=== PATIENT | female | born 1965 | race Caucasian/White ===

== ENCOUNTER 2018-04-16 18:24 | Emergency (ER) | payer MEDICAID ==
[~2018-04-16] VITALS: Ht 160 cm; Wt 72.6 kg
[~2018-04-16 18:24] MED LIST: ALBUTEROL2.5 MG/3 M IH; ANTI-DIARRHEAL2 MG PO; ATENOLOL 50MG T50 M1 PO; BELSOMRA5 MG PO; CARISOPRODOL 3350 MG PO; HYDROCHLOROTHIA25 M2 PO; HYDROCODONE-APA1 TA1 PO; INVOKANA300 MG PO; K-PHOS NEUTRAL250 MG PO; LEVAQUIN 500 M500 M2 PO; LEXAPRO20 MG PO; MAGNESIUM OXID400 MG PO; MEDROLDOSEPACK PO; METFORMIN HCL500 MG PO; MINOCIN100 MG PO; MINOCYCLINE HC100 M2 PO; NOHOMEMEDICATIONS; OMEPRAZOLE20 M2 PO; PRINIVIL10 MG PO; PROZAC10 MG PO; SEROQUEL 25 MG25 M1 PO; TUSSIONEX PENN473 ML PO; VENTOLIN HFA 1818 GM INH; XANAX 0.5 MG0.5 MG PO; ZANAFLEX4 MG PO
[2018-04-16] MEDS ORDERED: CLONAZEPAM 1 MG1 M1 PO (18:37)
[2018-04-16] MEDS ORDERED: ZANAFLEX4 MG PO (18:37)
[2018-04-16] MEDS ORDERED: LEVEMIR SUBQ (18:37)
[2018-04-16] MEDS ORDERED: AMLODIPINE BESY10 MG PO (18:38)
[2018-04-16] MEDS ORDERED: PROMETHAZINE HC25 M1 PO (18:38)
[2018-04-16] MEDS ORDERED: QUETIAPINE FUM100 MG PO (18:38)
[2018-04-16] MEDS ORDERED: LEXAPRO 10 MG T10 M1 PO (18:39)
[2018-04-16] MEDS ORDERED: SYNTHROID100 MC1 PO (18:39)
[2018-04-16] MEDS ORDERED: CLONIDINE1 EAC1 TD (18:40)
[2018-04-16] MEDS ORDERED: JANUVIA 50 MG T50 MG PO (18:40)
[2018-04-16] MEDS ORDERED: METOPROLOL SUCC50 MG PO (18:41)
[2018-04-16] MEDS ORDERED: AMITRIPTYLINE100 MG PO (18:42)
[2018-04-16] MEDS ORDERED: ASPIR 8181 MG PO (18:42)
[2018-04-16] MEDS ORDERED: DULERA 100 MCG/13 GM INH (18:42)
[2018-04-16] MEDS ORDERED: ATORVASTATIN CA40 MG PO (18:42)
[2018-04-16] MEDS ORDERED: XANAX XR2 MG PO (18:43)
[2018-04-16] MEDS ORDERED: ALPRAZOLAM2 MG PO (18:53)
[2018-04-16] MEDS ORDERED: CARISOPRODOL 3350 MG PO (18:53)
[2018-04-16 18:55] VITALS: BP 133/74
== END 2018-04-16 19:01 | disposition home or self-care (01) ==
LOC: M.ERS 18:24
DX: F41.9 Anxiety disorder, unspecified (principal); G89.29 Other chronic pain; Z76.0 Encounter for issue of repeat prescription; J44.9 Chronic obstructive pulmonary disease, unspecified; I10 Essential (primary) hypertension; E11.9 Type 2 diabetes mellitus without complications; F31.9 Bipolar disorder, unspecified; Z79.4 Long term (current) use of insulin; Z88.6 Allergy status to analgesic agent; Z88.8 Allergy status to other drugs, medicaments and biological substances; F17.210 Nicotine dependence, cigarettes, uncomplicated

== ENCOUNTER 2018-09-19 15:32 | Emergency (ER) | payer MEDICAID ==
[~2018-09-19] VITALS: Ht 160 cm; Wt 68.0 kg
[~2018-09-19 15:32] MED LIST changes: +ALPRAZOLAM2 MG PO; +AMITRIPTYLINE100 MG PO; +AMLODIPINE BESY10 MG PO; +ASPIR 8181 MG PO; +ATORVASTATIN CA40 MG PO; +CLONAZEPAM 1 MG1 M1 PO; +CLONIDINE1 EAC1 TD; +DULERA 100 MCG/13 GM INH; +JANUVIA 50 MG T50 MG PO; +LEVEMIR SUBQ; +LEXAPRO 10 MG T10 M1 PO; +METOPROLOL SUCC50 MG PO; +PROMETHAZINE HC25 M1 PO; +QUETIAPINE FUM100 MG PO; +SYNTHROID100 MC1 PO; +XANAX XR2 MG PO
[2018-09-19] MEDS ORDERED: NICOTINE TRANSD21 M1 (15:57)
[2018-09-19] MEDS ORDERED: AZITHROMYCIN 2250 MG PO (15:58)
[2018-09-19] MEDS ORDERED: CLONIDINE0.1 PO (16:04)
[2018-09-19] MEDS ORDERED: DULERA 100 MCG/13 GM INH (16:05)
[2018-09-19 16:28] LABS: ABSOLUTE BASOPHILS 0.1 thou/uL (0.0-0.2); ABSOLUTE EOSINOPHILS 0.1 thou/uL (0.0-0.7); ABSOLUTE LYMPHOCYTES 1.3 thou/uL (0.8-5.3); ABSOLUTE MONOCYTES 0.6 thou/uL (0.0-1.2); ABSOLUTE NEUTROPHILS 6.2 thou/uL (1.6-8.1); EOSINOPHILS 1.6 %; HEMATOCRIT 48.4 % (37.0-47.0); HEMOGLOBIN 16.3 gm/dL (12.0-15.0); LYMPHOCYTES 15.2 %; MCH 28.8 pg (26.0-34.0); MCHC 33.6 g/dL (28.0-37.0); MCV 85.8 fL (80.0-100.0); MONOCYTES 7.4 %; MPV 8.7 fl. (7.2-11.1); NUCLEATED RBCS 0 /100WBC; PLATELET COUNT* 200 thou/uL (150-400); POLYS 74.8 %; RBC 5.64 mil/uL (4.20-5.00); RDW-CV 16.1 % (10.5-14.5); WBC 8.3 thou/uL (4.0-11.0)
[2018-09-19 16:29] LABS: CALCIUM 9.3 mg/dL (8.5-10.1); CREATININE 0.9 mg/dL (0.6-1.3); POTASSIUM 3.3 mmol/L (3.5-5.1)
[2018-09-19 16:41] LABS: ALBUMIN 4.4 g/dL (3.4-5.0); TOTAL BILIRUBIN 0.4 mg/dL (<0.1-1.0); TOTAL PROTEIN 8.3 g/dL (6.4-8.2)
[2018-09-19 18:22] LABS: URINE BILIRUBIN NEGATIVE (Negative); URINE BLOOD NEGATIVE (Negative); URINE CLARITY CLEAR; URINE COLOR YELLOW; URINE GLUCOSE-RANDOM 3+ (Negative); URINE KETONES NEGATIVE (Negative); URINE LEUKOCYTES-REFLEX NEGATIVE (Negative); URINE NITRITE-REFLEX NEGATIVE (Negative); URINE PROTEIN NEGATIVE (Negative); URINE UROBILINOGEN 0.2 E.U./dl (0.2-1.0)
[2018-09-19] MEDS ORDERED: HYDROCODONE-AP1 EAC6 PO (18:26)
[2018-09-19] MEDS ORDERED: NABUMETONE 750750 M1 PO (18:26)
[2018-09-19] MEDS ORDERED: FLOMAX0.4 MG PO (18:26)
[2018-09-19] MEDS ORDERED: ONDANSETRON HCL4 M2 PO (18:26)
[2018-09-19 18:44] VITALS: BP 141/74
--- NOTE | 2018-09-20 17:22 | EKG ---
[place] [address] ELECTROCARDIOGRAM REPORT Name: ESHA ALDRIDGE Room: [facility]#: [id number] Admission: 09/19/18 Attend Phys: Discharge: 09/19/18 Date of : 63 Report #: [id number] THIS REPORT FOR: //name// [facility] ED Test Date: 2018-09-19 Test Time: 16:35:54 Pat Name: ESHA ALDRIDGE Department: Room: Gender: F Motor Operator: Latrell NEFF : 1965 Requested By: Luara Grady Order Number: [id number] MD: Bob Nicole Measurements Intervals [place] Rate: 97 P: 82 MS: 164 QRS: 82 QRSD: 91 T: 66 QT: 341 QTc: 433 Interpretive Statements Sinus rhythm Compared to ECG 12/27/2015 16:54:30 Incomplete right bundle-branch block no longer present Electronically Signed On 09-20-2018 17:22:29 CDT by Bob Nicole [email or web address] <ELECTRONICALLY SIGNED> By: Bob Nicole MD, [facility] 09/20/18 1722 1635 163 Bob Nicole MD, FACC /EPI
== END 2018-09-19 18:45 | disposition home or self-care (01) ==
LOC: M.ERS 15:32
PROVIDERS: Nurse Practitioner Family
DX: N20.1 Calculus of ureter (principal); K59.00 Constipation, unspecified; E11.65 Type 2 diabetes mellitus with hyperglycemia; J44.9 Chronic obstructive pulmonary disease, unspecified; K58.9 Irritable bowel syndrome, unspecified; I10 Essential (primary) hypertension; F31.9 Bipolar disorder, unspecified; F41.9 Anxiety disorder, unspecified; F17.210 Nicotine dependence, cigarettes, uncomplicated; Z79.4 Long term (current) use of insulin; Z88.8 Allergy status to other drugs, medicaments and biological substances; Z88.6 Allergy status to analgesic agent

== ENCOUNTER 2018-10-04 13:02 | Inpatient (IN) | payer MEDICAID ==
[~2018-10-04] VITALS: Ht 160 cm; Wt 74.4 kg
[~2018-10-04 13:02] MED LIST changes: +AZITHROMYCIN 2250 MG PO; +CLONIDINE0.1 PO; +FLOMAX0.4 MG PO; +HYDROCODONE-AP1 EAC6 PO; +NABUMETONE 750750 M1 PO; +NICOTINE TRANSD21 M1; +ONDANSETRON HCL4 M2 PO
[2018-10-04 13:04] VITALS: BP 119/68
[2018-10-04] MEDS ORDERED: EXCEDRIN CAPLE1 EACH PO (13:17)
[2018-10-04 14:00] LABS: HEMOGLOBIN 13.4 gm/dL (12.0-15.0); MCH 28.6 pg (26.0-34.0); MCHC 33.4 g/dL (28.0-37.0); MCV 85.5 fL (80.0-100.0); MPV 9.5 fl. (7.2-11.1); RBC 4.68 mil/uL (4.20-5.00); RDW-CV 15.2 % (10.5-14.5); WBC 8.2 thou/uL (4.0-11.0)
[2018-10-04 14:14] LABS: CALCIUM 8.6 mg/dL (8.5-10.1); CREATININE 0.8 mg/dL (0.6-1.3); POTASSIUM 3.3 mmol/L (3.5-5.1)
[2018-10-04 14:19] LABS: ALBUMIN 3.4 g/dL (3.4-5.0); TOTAL BILIRUBIN 0.5 mg/dL (<0.1-1.0); TOTAL PROTEIN 6.6 g/dL (6.4-8.2)
[2018-10-04 14:20] LABS: ALCOHOL < 10 mg/dL (<10); SALICYLATE 4.4 mg/dL (2.8-20.0)
[2018-10-04 14:21] LABS: ACETAMINOPHEN < 2 ug/mL (10-30)
[2018-10-04 14:24] LABS: URINE BILIRUBIN NEGATIVE (Negative); URINE BLOOD NEGATIVE (Negative); URINE CLARITY CLEAR; URINE COLOR YELLOW; URINE GLUCOSE-RANDOM 3+ (Negative); URINE KETONES NEGATIVE (Negative); URINE LEUKOCYTES NEGATIVE (Negative); URINE NITRITE NEGATIVE (Negative); URINE PROTEIN NEGATIVE (Negative); URINE SPECIFIC GRAVITY 1.025 (1.005-1.030); URINE UROBILINOGEN 0.2 E.U./dl (0.2-1.0)
[2018-10-04 14:34] LABS: AMP/METHAMP Negative (Negative); BARBITURATES Negative (Negative); BENZODIAZEPINES POSITIVE (Negative); COCAINE Negative (Negative); METHADONE Negative (Negative); OPIATES POSITIVE (Negative); PCP Negative (Negative); THC Negative (Negative)
--- NOTE | 2018-10-04 16:25 | NUR ---
PT PURSE AND PRESCRIPTION MEDS SENT HOME WITH PT MOTHER.
--- NOTE | 2018-10-04 17:41 | EKG ---
[place] [address] ELECTROCARDIOGRAM REPORT Name: ESHA ALDRIDGE Room: [facility]#: [id number] Admission: 10/04/18 Attend Phys: Discharge: Date of : 63 Report #: [id number] THIS REPORT FOR: //name// [facility] ED Test Date: 2018-10-04 Test Time: 14:36:37 Pat Name: ESHA ALDRIDGE Department: Room: Gender: Acid Regenerator: Latrell MAY : 1965 Requested By: Julieth Guardado Order Number: [id number] MD: Robbin Wright Measurements Intervals [place] Rate: 88 P: 69 [place]: 182 QRS: 72 QRSD: 89 T: 39 QT: 356 QTc: 431 Interpretive Statements Sinus rhythm Compared to ECG 09/19/2018 16:35:54 No significant changes Electronically Signed On 10-04-2018 17:41:03 LEAD FRONT END DEVELOPER by Robbin Wright [email or web address] <ELECTRONICALLY SIGNED> By: Robbin Wright MD, [facility] 10/04/18 1741 1436 1436 Robbin Wright MD, FACC /EPI
[2018-10-04 20:21] VITALS: BP 128/79
[2018-10-04 22:00] VITALS: BP 125/71
[2018-10-05] VITALS: BP 125/69
[2018-10-05 04:00] VITALS: BP 104/61
[2018-10-05 05:05] LABS: ABSOLUTE EOSINOPHILS 0.2 thou/uL (0.0-0.7); ABSOLUTE LYMPHOCYTES 1.8 thou/uL (0.8-5.3); ABSOLUTE MONOCYTES 0.4 thou/uL (0.0-1.2); ABSOLUTE NEUTROPHILS 4.1 thou/uL (1.6-8.1); BASOPHILS 0.6 %; EOSINOPHILS 2.4 %; HEMATOCRIT 37.4 % (37.0-47.0); HEMOGLOBIN 12.6 gm/dL (12.0-15.0); MCH 28.6 pg (26.0-34.0); MCHC 33.7 g/dL (28.0-37.0); MPV 9.4 fl. (7.2-11.1); NUCLEATED RBCS 0 /100WBC; PLATELET COUNT* 167 thou/uL (150-400); RDW-CV 15.2 % (10.5-14.5); WBC 6.5 thou/uL (4.0-11.0)
[2018-10-05 05:17] LABS: CALCIUM 8.3 mg/dL (8.5-10.1); CREATININE 0.7 mg/dL (0.6-1.3); POTASSIUM 3.5 mmol/L (3.5-5.1)
--- NOTE | 2018-10-05 06:23 | NUR ---
ASSUMED PT CARE AT 2015. ADMISSION ASSESSMENT COMPLETED CHARTED. PT DOES NOT STATE ANY SI. PT STATES TO TELE PSYCH THAT SHE DID NOT TAKE ANY EXTRA PILLS. PT TOLD THIS RN SHE TOOK "4 EXTRA PAIN PILLS THAT STARTED WITH AN N" WHEN ASKED WHY SHE STATED "BECAUSE I WAS HURTING" PT IS TRACING NSR ON THE ON RA SATTING MID TO HIGH 90'S. IVF INFUSING PER MAR. PT IS IMPULSIVE AND TRIES TO GET UP ALONE. DESPITE EDUCATION. BED IN LOW POSITION, CALL LIGHT IN REACH, BED ALARM ON, YELLOW ARM BAND AND SOCKS IN PLACE. HOURLY ROUNDING COMPLETED FOR PT SAFETY.
[2018-10-05 08:20] VITALS: BP 141/75
[2018-10-05 12:00] VITALS: BP 163/80
[2018-10-05] MEDS ORDERED: AUGMENTIN 875-1 EACH PO (13:38)
[2018-10-05 13:39] VITALS: BP 163/80
--- NOTE | 2018-10-05 14:06 | NUR ---
ASSUMED CARE OF PT FROM RAJEEV BAE. PT D/C'D TO HOME. ALL CONSULTS OK WITH D/C. EDUCATION GIVEN RE MEDICATIONS, FOLLOW-UPS, AND DRS ORDERS. D/C'D IV AND CARDIAC MONITER. ALL BELONGINGS PACKED UP AND LEFT WITH PT ACCOMPANIED BY STAFF. SCRIPT GIVEN.
== END 2018-10-05 14:15 | disposition home or self-care (01) | DRG 917 ==
LOC: M.ERS 13:02 → M.2W 18:39 → M.TBA-ER 18:39 → M.2W 20:13
PROVIDERS: Personal Emergency Response Attendant; ADMIT Internal Medicine
DX: T50.991A Poisoning by other drugs, medicaments and biological substances, accidental (unintentional), initial encounter (principal); G92 Toxic encephalopathy; J96.01 Acute respiratory failure with hypoxia; J44.9 Chronic obstructive pulmonary disease, unspecified; I10 Essential (primary) hypertension; K58.9 Irritable bowel syndrome, unspecified; F31.9 Bipolar disorder, unspecified; F41.0 Panic disorder [episodic paroxysmal anxiety]; F43.10 Post-traumatic stress disorder, unspecified; K57.90 Diverticulosis of intestine, part unspecified, without perforation or abscess without bleeding; E11.65 Type 2 diabetes mellitus with hyperglycemia; F17.210 Nicotine dependence, cigarettes, uncomplicated; E87.6 Hypokalemia; Z71.6 Tobacco abuse counseling; Y92.89 Other specified places as the place of occurrence of the external cause; Z79.4 Long term (current) use of insulin; Z79.899 Other long term (current) drug therapy; Z88.8 Allergy status to other drugs, medicaments and biological substances; Z82.49 Family history of ischemic heart disease and other diseases of the circulatory system

== ENCOUNTER 2018-10-20 11:41 | Emergency (ER) | payer MEDICAID ==
[~2018-10-20] VITALS: Ht 160 cm; Wt 71.2 kg
[~2018-10-20 11:41] MED LIST changes: +AUGMENTIN 875-1 EACH PO; +EXCEDRIN CAPLE1 EACH PO
[2018-10-20] MEDS ORDERED: FLOMAX0.4 MG PO (11:52)
[2018-10-20] MEDS ORDERED: ACETAMINOPHEN-1 EAC1 PO (11:52)
[2018-10-20] MEDS ORDERED: NAPROSYN500 MG PO (14:34)
[2018-10-20 14:40] VITALS: BP 139/64
== END 2018-10-20 14:40 | disposition home or self-care (01) ==
LOC: M.ERS 11:41
DX: S93.491A Sprain of other ligament of right ankle, initial encounter (principal); M54.6 Pain in thoracic spine; M54.2 Cervicalgia; M79.671 Pain in right foot; J44.9 Chronic obstructive pulmonary disease, unspecified; K58.9 Irritable bowel syndrome, unspecified; I10 Essential (primary) hypertension; E11.9 Type 2 diabetes mellitus without complications; F31.9 Bipolar disorder, unspecified; F41.0 Panic disorder [episodic paroxysmal anxiety]; K31.84 Gastroparesis; Z98.890 Other specified postprocedural states; Z79.4 Long term (current) use of insulin; Z88.6 Allergy status to analgesic agent; Z88.8 Allergy status to other drugs, medicaments and biological substances; W18.39XA Other fall on same level, initial encounter; Y93.89 Activity, other specified; Y92.89 Other specified places as the place of occurrence of the external cause; Y99.8 Other external cause status

== ENCOUNTER 2019-04-05 13:49 | Emergency (ER) | payer MEDICAID ==
[~2019-04-05] VITALS: Ht 160 cm; Wt 66.7 kg
[~2019-04-05 13:49] MED LIST changes: +ACETAMINOPHEN-1 EAC1 PO; +NAPROSYN500 MG PO
[2019-04-05 14:00] VITALS: BP 124/69
[2019-04-05] MEDS ORDERED: CARISOPRODOL 3350 MG PO (14:47)
[2019-04-05] MEDS ORDERED: NORCO 5-325 TA1 EACH PO (14:47)
[2019-04-05] MEDS ORDERED: ALPRAZOLAM2 MG PO (14:47)
== END 2019-04-05 15:03 | disposition home or self-care (01) ==
LOC: M.ERS 13:49
DX: M25.571 Pain in right ankle and joints of right foot (principal); F41.9 Anxiety disorder, unspecified; E11.43 Type 2 diabetes mellitus with diabetic autonomic (poly)neuropathy; K31.84 Gastroparesis; J44.9 Chronic obstructive pulmonary disease, unspecified; K58.9 Irritable bowel syndrome, unspecified; I10 Essential (primary) hypertension; F31.9 Bipolar disorder, unspecified; F17.210 Nicotine dependence, cigarettes, uncomplicated; Z88.6 Allergy status to analgesic agent; Z88.8 Allergy status to other drugs, medicaments and biological substances; Z79.4 Long term (current) use of insulin

== ENCOUNTER 2019-04-20 20:59 | Emergency (ER) | payer MEDICAID ==
[~2019-04-20] VITALS: Ht 160 cm; Wt 66.2 kg
[~2019-04-20 20:59] MED LIST changes: -METOPROLOL SUCC50 MG PO; +NORCO 5-325 TA1 EACH PO; -QUETIAPINE FUM100 MG PO; +SEROQUEL XR 20200 MG PO; +TOPROL XL100 MG PO
[2019-04-20] MEDS ORDERED: NEURONTIN 300300 M1 (21:30)
[2019-04-20] MEDS ORDERED: PROVERA2.5 MG (21:31)
[2019-04-20] MEDS ORDERED: ESTRADIOL 1 MG T1 M1 (21:32)
[2019-04-20] MEDS ORDERED: METFORMIN HCL500 MG (21:35)
[2019-04-20] MEDS ORDERED: DYNACIN100 MG (21:38)
[2019-04-20] MEDS ORDERED: ASPIR 8181 MG (21:41)
[2019-04-20] MEDS ORDERED: DULERA 100 MCG/13 GM INH (21:43)
[2019-04-20 21:55] LABS: ABSOLUTE BASOPHILS 0.1 thou/uL (0.0-0.2); ABSOLUTE EOSINOPHILS 0.1 thou/uL (0.0-0.7); ABSOLUTE LYMPHOCYTES 2.2 thou/uL (0.8-5.3); ABSOLUTE MONOCYTES 0.3 thou/uL (0.0-1.2); ABSOLUTE NEUTROPHILS 3.7 thou/uL (1.6-8.1); BASOPHILS 0.9 %; EOSINOPHILS 2.1 %; HEMATOCRIT 41.4 % (37.0-47.0); HEMOGLOBIN 14.2 gm/dL (12.0-15.0); LYMPHOCYTES 34.4 %; MCH 29.3 pg (26.0-34.0); MCHC 34.4 g/dL (28.0-37.0); MCV 85.2 fL (80.0-100.0); MONOCYTES 4.8 %; MPV 9.4 fl. (7.2-11.1); NUCLEATED RBCS 0 /100WBC; PLATELET COUNT* 156 thou/uL (150-400); POLYS 57.8 %; RBC 4.86 mil/uL (4.20-5.00); RDW-CV 14.7 % (10.5-14.5); WBC 6.3 thou/uL (4.0-11.0)
[2019-04-20 22:01] LABS: ANION GAP 12 mmol/L (7-16); BUN 5 mg/dL (7-18); CALCIUM 8.8 mg/dL (8.5-10.1); CHLORIDE 96 mmol/L (98-107); CO2 27 mmol/L (21-32); CREATININE 0.8 mg/dL (0.6-1.3); GLUCOSE 380 mg/dL (70-99); SODIUM 135 mmol/L (136-145)
[2019-04-20 22:05] LABS: URINE BILIRUBIN NEGATIVE (Negative); URINE BLOOD NEGATIVE (Negative); URINE CLARITY CLEAR; URINE COLOR YELLOW; URINE GLUCOSE-RANDOM 3+ (Negative); URINE KETONES NEGATIVE (Negative); URINE LEUKOCYTES-REFLEX NEGATIVE (Negative); URINE NITRITE-REFLEX NEGATIVE (Negative); URINE PROTEIN NEGATIVE (Negative); URINE SPECIFIC GRAVITY <= 1.005 (1.005-1.030); URINE UROBILINOGEN 0.2 E.U./dl (0.2-1.0)
[2019-04-20 22:05] LABS: POTASSIUM 2.9 mmol/L (3.5-5.1)
[2019-04-20 22:10] LABS: ALBUMIN 3.5 g/dL (3.4-5.0); ALKALINE PHOSPHATASE 101 U/L (46-116); SGOT 22 U/L (15-37); SGPT 37 U/L (30-65); TOTAL BILIRUBIN 0.4 mg/dL (<0.1-1.0); TOTAL PROTEIN 6.5 g/dL (6.4-8.2); TROPONIN-I LEVEL <0.06 ng/mL (<0.06)
[2019-04-20 22:16] LABS: AMP/METHAMP POSITIVE (Negative); BARBITURATES Negative (Negative); BENZODIAZEPINES POSITIVE (Negative); COCAINE Negative (Negative); METHADONE Negative (Negative); OPIATES Negative (Negative); PCP Negative (Negative); THC POSITIVE (Negative)
[2019-04-20] MEDS ORDERED: ACETAMINOPHEN-1 EAC1 PO (23:52)
[2019-04-20] MEDS ORDERED: MELOXICAM15 MG PO (23:52)
[2019-04-21 01:07] VITALS: BP 108/60
--- NOTE | 2019-04-23 16:45 | EKG ---
[place] [address] ELECTROCARDIOGRAM REPORT Name: ESHA ALDRIDGE Room: [facility] ([place] [place]#: [id number] Admission: 04/20/19 Attend Phys: Discharge: 04/21/19 Date of : 63 Report #: [id number] THIS REPORT FOR: //name// [facility] ED Test Date: 2019-04-20 Test Time: 21:47:14 Pat Name: ESHA ALDRIDGE Department: Room: Gender: F Cell Installer: LULU : 1965 Requested By: Julieth Guardado Order Number: [id number] MD: Kaveh Collier Measurements Intervals [place] Rate: 87 P: 73 ID: 177 QRS: 70 QRSD: 93 T: 51 QT: 361 QTc: 435 Interpretive Statements Sinus rhythm Compared to ECG 10/04/2018 14:36:37 No significant changes Electronically Signed On 04-23-2019 16:45:18 CDT by Kaveh Collier [email or web address] <ELECTRONICALLY SIGNED> By: Kaveh Collier MD, [facility] 04/23/19 1645 2147 2147 Kaveh Collier MD, FACC /EPI
== END 2019-04-21 01:07 | disposition home or self-care (01) ==
LOC: M.ERS 20:59
PROVIDERS: Personal Emergency Response Attendant
DX: E11.65 Type 2 diabetes mellitus with hyperglycemia (principal); E87.6 Hypokalemia; E11.43 Type 2 diabetes mellitus with diabetic autonomic (poly)neuropathy; K31.84 Gastroparesis; J44.9 Chronic obstructive pulmonary disease, unspecified; I10 Essential (primary) hypertension; F41.9 Anxiety disorder, unspecified; F31.9 Bipolar disorder, unspecified; F17.210 Nicotine dependence, cigarettes, uncomplicated; Z98.890 Other specified postprocedural states; Z88.8 Allergy status to other drugs, medicaments and biological substances; Z79.4 Long term (current) use of insulin; Z79.899 Other long term (current) drug therapy

== ENCOUNTER 2019-05-01 20:21 | Emergency (ER) | payer MEDICAID ==
[~2019-05-01] VITALS: Ht 160 cm; Wt 69.0 kg
[~2019-05-01 20:21] MED LIST changes: +ASPIR 8181 MG; +DYNACIN100 MG; +ESTRADIOL 1 MG T1 M1; +MELOXICAM15 MG PO; +METFORMIN HCL500 MG; +NEURONTIN 300300 M1; +PROVERA2.5 MG
[2019-05-01 21:37] LABS: ABSOLUTE EOSINOPHILS 0.1 thou/uL (0.0-0.7); ABSOLUTE LYMPHOCYTES 1.8 thou/uL (0.8-5.3); ABSOLUTE MONOCYTES 0.3 thou/uL (0.0-1.2); ABSOLUTE NEUTROPHILS 4.1 thou/uL (1.6-8.1); BASOPHILS 0.4 %; EOSINOPHILS 2.1 %; HEMATOCRIT 42.8 % (37.0-47.0); HEMOGLOBIN 14.2 gm/dL (12.0-15.0); LYMPHOCYTES 27.9 %; MCH 28.7 pg (26.0-34.0); MCHC 33.3 g/dL (28.0-37.0); MCV 86.4 fL (80.0-100.0); MONOCYTES 5.4 %; MPV 8.6 fl. (7.2-11.1); NUCLEATED RBCS 0 /100WBC; PLATELET COUNT* 173 thou/uL (150-400); POLYS 64.2 %; RBC 4.95 mil/uL (4.20-5.00); RDW-CV 15.3 % (10.5-14.5); WBC 6.3 thou/uL (4.0-11.0)
[2019-05-01 21:46] LABS: CALCIUM 8.9 mg/dL (8.5-10.1); CREATININE 0.8 mg/dL (0.6-1.3); POTASSIUM 3.2 mmol/L (3.5-5.1)
[2019-05-01 21:51] LABS: ALBUMIN 3.7 g/dL (3.4-5.0); TOTAL BILIRUBIN 0.6 mg/dL (<0.1-1.0); TOTAL PROTEIN 6.8 g/dL (6.4-8.2)
[2019-05-01 23:03] VITALS: BP 123/67
== END 2019-05-01 23:03 | disposition home or self-care (01) ==
LOC: M.ERS 20:21
PROVIDERS: Personal Emergency Response Attendant
DX: S39.012A Strain of muscle, fascia and tendon of lower back, initial encounter (principal); S00.83XA Contusion of other part of head, initial encounter; S20.222A Contusion of left back wall of thorax, initial encounter; S20.221A Contusion of right back wall of thorax, initial encounter; S80.01XA Contusion of right knee, initial encounter; J44.9 Chronic obstructive pulmonary disease, unspecified; K58.9 Irritable bowel syndrome, unspecified; I10 Essential (primary) hypertension; F31.9 Bipolar disorder, unspecified; F41.9 Anxiety disorder, unspecified; E11.43 Type 2 diabetes mellitus with diabetic autonomic (poly)neuropathy; K31.84 Gastroparesis; Z79.4 Long term (current) use of insulin; F17.210 Nicotine dependence, cigarettes, uncomplicated; Z88.6 Allergy status to analgesic agent; Z88.8 Allergy status to other drugs, medicaments and biological substances

== ENCOUNTER 2019-06-04 18:18 | Emergency (ER) | payer MEDICAID ==
[~2019-06-04] VITALS: Ht 160 cm; Wt 73.0 kg
[2019-06-04 19:00] LABS: ABSOLUTE BASOPHILS 0.1 thou/uL (0.0-0.2); ABSOLUTE EOSINOPHILS 0.3 thou/uL (0.0-0.7); ABSOLUTE MONOCYTES 0.5 thou/uL (0.0-1.2); ABSOLUTE NEUTROPHILS 5.1 thou/uL (1.6-8.1); BASOPHILS 0.7 %; EOSINOPHILS 3.5 %; HEMATOCRIT 35.4 % (37.0-47.0); LYMPHOCYTES 25.1 %; MCH 29.4 pg (26.0-34.0); MCV 86.2 fL (80.0-100.0); MONOCYTES 6.7 %; MPV 8.2 fl. (7.2-11.1); NUCLEATED RBCS 0 /100WBC; PLATELET COUNT* 184 thou/uL (150-400); RDW-CV 15.2 % (10.5-14.5)
[2019-06-04 19:06] LABS: ANION GAP 7 mmol/L (7-16); BUN 10 mg/dL (7-18); CALCIUM 8.4 mg/dL (8.5-10.1); CHLORIDE 94 mmol/L (98-107); CO2 34 mmol/L (21-32); CREATININE 0.8 mg/dL (0.6-1.3); GLUCOSE 110 mg/dL (70-99); POTASSIUM 3.1 mmol/L (3.5-5.1); SODIUM 135 mmol/L (136-145)
[2019-06-04 19:15] LABS: ALBUMIN 3.8 g/dL (3.4-5.0); ALKALINE PHOSPHATASE 96 U/L (46-116); SGOT 26 U/L (15-37); SGPT 41 U/L (30-65); TOTAL BILIRUBIN 0.5 mg/dL (<0.1-1.0); TOTAL PROTEIN 7.1 g/dL (6.4-8.2); TROPONIN-I LEVEL <0.06 ng/mL (<0.06)
[2019-06-04 20:12] VITALS: BP 111/61
== END 2019-06-04 20:15 | disposition home or self-care (01) ==
LOC: M.ERS 18:18
PROVIDERS: Physician Assistant
DX: S80.11XA Contusion of right lower leg, initial encounter (principal); R51 Headache; I10 Essential (primary) hypertension; J44.9 Chronic obstructive pulmonary disease, unspecified; K58.9 Irritable bowel syndrome, unspecified; E11.43 Type 2 diabetes mellitus with diabetic autonomic (poly)neuropathy; K31.84 Gastroparesis; F31.9 Bipolar disorder, unspecified; F41.9 Anxiety disorder, unspecified; F17.210 Nicotine dependence, cigarettes, uncomplicated; Z98.51 Tubal ligation status; Z88.8 Allergy status to other drugs, medicaments and biological substances; Z88.5 Allergy status to narcotic agent; Z79.4 Long term (current) use of insulin; Y08.89XA Assault by other specified means, initial encounter; Y93.89 Activity, other specified; Y92.89 Other specified places as the place of occurrence of the external cause; Y99.8 Other external cause status

== ENCOUNTER 2019-09-22 13:58 | Inpatient (IN) | payer MEDICAID ==
[~2019-09-22] VITALS: Ht 167.6 cm; Wt 75.7 kg
[~2019-09-22 13:58] MED LIST changes: -DYNACIN100 MG
[2019-09-22 14:05] VITALS: BP 97/56
[2019-09-22 14:31] LABS: ABSOLUTE BASOPHILS 0.1 thou/uL (0.0-0.2); ABSOLUTE EOSINOPHILS 0.1 thou/uL (0.0-0.7); ABSOLUTE LYMPHOCYTES 2.2 thou/uL (0.8-5.3); ABSOLUTE MONOCYTES 0.5 thou/uL (0.0-1.2); ABSOLUTE NEUTROPHILS 5.6 thou/uL (1.6-8.1); BASOPHILS 0.9 %; EOSINOPHILS 1.7 %; HEMATOCRIT 38.8 % (37.0-47.0); HEMOGLOBIN 13.3 gm/dL (12.0-15.0); LYMPHOCYTES 25.8 %; MCH 29.3 pg (26.0-34.0); MCHC 34.2 g/dL (28.0-37.0); MCV 85.8 fL (80.0-100.0); MONOCYTES 5.6 %; MPV 8.3 fl. (7.2-11.1); NUCLEATED RBCS 0 /100WBC; PLATELET COUNT* 209 thou/uL (150-400); RBC 4.53 mil/uL (4.20-5.00); RDW-CV 15.1 % (10.5-14.5); WBC 8.5 thou/uL (4.0-11.0)
[2019-09-22 14:46] LABS: CALCIUM 9.4 mg/dL (8.5-10.1); CREATININE 0.9 mg/dL (0.6-1.3); POTASSIUM 3.2 mmol/L (3.5-5.1)
[2019-09-22 14:51] LABS: ALBUMIN 3.9 g/dL (3.4-5.0); TOTAL BILIRUBIN 0.5 mg/dL (<0.1-1.0); TOTAL PROTEIN 7.2 g/dL (6.4-8.2)
[2019-09-22 16:03] VITALS: BP 116/59
[2019-09-22 16:22] VITALS: BP 120/38
[2019-09-22 17:00] VITALS: BP 104/61
[2019-09-22 17:46] LABS: BE 2.5 mmol/L (-2 to +3); PO2 77.7 mmHg (75.0-100.0); pH 7.348 (7.340-7.450)
[2019-09-22 17:49] LABS: PCO2 54.6 mmHg (35.0-45.0)
[2019-09-22 19:02] VITALS: BP 124/77
[2019-09-22 19:40] LABS: URINE BILIRUBIN NEGATIVE (Negative); URINE BLOOD NEGATIVE (Negative); URINE CLARITY CLEAR; URINE COLOR YELLOW; URINE GLUCOSE-RANDOM NEGATIVE (Negative); URINE KETONES NEGATIVE (Negative); URINE LEUKOCYTES-REFLEX NEGATIVE (Negative); URINE NITRITE-REFLEX NEGATIVE (Negative); URINE PROTEIN NEGATIVE (Negative); URINE SPECIFIC GRAVITY <= 1.005 (1.005-1.030); URINE UROBILINOGEN 0.2 E.U./dl (0.2-1.0)
[2019-09-22 19:53] LABS: AMP/METHAMP POSITIVE (Negative); BARBITURATES Negative (Negative); BENZODIAZEPINES POSITIVE (Negative); COCAINE Negative (Negative); METHADONE Negative (Negative); OPIATES POSITIVE (Negative); PCP Negative (Negative); THC Negative (Negative)
--- NOTE | 2019-09-24 12:04 | EKG ---
[place] [address] ELECTROCARDIOGRAM REPORT Name: ESHA ALDRIDGE Room: [address] M.R.#: [id number] Admission: 09/22/19 Attend Phys: Garry Campbell, Discharge: 09/22/19 Date of : 63 Report #: [id number] THIS REPORT FOR: //name// [facility] ED Test Date: 2019-09-22 Test Time: 14:08:01 Pat Name: ESHA ALDRIDGE Department: Room: [address] Gender: F Cutting Machine Operator: GI : 1965 Requested By: Julieth Guardado Order Number: [id number] Lorin HECTOR: Kaveh Collier Measurements Intervals [place] Rate: 94 P: 74 NE: 161 QRS: 54 QRSD: 81 T: 48 QT: 367 QTc: 459 Interpretive Statements Sinus rhythm Baseline wander in lead(s) V5 Compared to ECG 04/20/2019 21:47:14 No significant changes Electronically Signed On 09-24-2019 12:04:36 DISPATCH SPECIALIST by Kaveh Collier [email or web address] <ELECTRONICALLY SIGNED> By: Kaveh Collier MD, [facility] 09/24/19 1204 1408 1408 Kaveh Collier MD, [facility] /EPI
== END 2019-09-22 20:54 | disposition left against medical advice (07) | DRG 917 ==
LOC: M.ERS 13:58 → M.ICU 15:15 → M.TBA-ER 15:15 → M.ICU 16:11
PROVIDERS: Personal Emergency Response Attendant; ADMIT Family Medicine
DX: T40.601A Poisoning by unspecified narcotics, accidental (unintentional), initial encounter (principal); J96.91 Respiratory failure, unspecified with hypoxia; G92 Toxic encephalopathy; J44.9 Chronic obstructive pulmonary disease, unspecified; I10 Essential (primary) hypertension; K58.9 Irritable bowel syndrome, unspecified; K57.90 Diverticulosis of intestine, part unspecified, without perforation or abscess without bleeding; F41.9 Anxiety disorder, unspecified; E11.43 Type 2 diabetes mellitus with diabetic autonomic (poly)neuropathy; K31.84 Gastroparesis; F43.10 Post-traumatic stress disorder, unspecified; F17.210 Nicotine dependence, cigarettes, uncomplicated; E87.6 Hypokalemia; Y92.89 Other specified places as the place of occurrence of the external cause; Z79.899 Other long term (current) drug therapy; Z79.84 Long term (current) use of oral hypoglycemic drugs; Z79.82 Long term (current) use of aspirin; Z88.8 Allergy status to other drugs, medicaments and biological substances; Z79.4 Long term (current) use of insulin; Z82.49 Family history of ischemic heart disease and other diseases of the circulatory system

== ENCOUNTER 2019-12-18 18:22 | Emergency (ER) | payer MEDICAID ==
[~2019-12-18] VITALS: Ht 160 cm; Wt 77.1 kg
[2019-12-18 18:57] LABS: ABSOLUTE EOSINOPHILS 0.2 thou/uL (0.0-0.7); ABSOLUTE LYMPHOCYTES 1.8 thou/uL (0.8-5.3); ABSOLUTE MONOCYTES 0.4 thou/uL (0.0-1.2); BASOPHILS 0.7 %; EOSINOPHILS 3.3 %; HEMATOCRIT 43.3 % (37.0-47.0); HEMOGLOBIN 14.6 gm/dL (12.0-15.0); LYMPHOCYTES 27.6 %; MCH 28.5 pg (26.0-34.0); MCHC 33.8 g/dL (28.0-37.0); MCV 84.5 fL (80.0-100.0); MONOCYTES 6.1 %; MPV 8.4 fl. (7.2-11.1); NUCLEATED RBCS 0 /100WBC; PLATELET COUNT* 206 thou/uL (150-400); POLYS 62.3 %; RBC 5.13 mil/uL (4.20-5.00); RDW-CV 15.9 % (10.5-14.5); WBC 6.4 thou/uL (4.0-11.0)
[2019-12-18 19:06] LABS: CALCIUM 8.6 mg/dL (8.5-10.1); CREATININE 0.8 mg/dL (0.6-1.3); POTASSIUM 3.8 mmol/L (3.5-5.1)
[2019-12-18 19:09] LABS: APTT 25.2 Seconds (25.0-31.3)
[2019-12-18 19:19] LABS: ALBUMIN 3.9 g/dL (3.4-5.0); CK-MB MASS 1.1 ng/mL (<0.5-3.6); MAGNESIUM 1.7 mg/dL (1.8-2.4); TOTAL BILIRUBIN 0.3 mg/dL (<0.1-1.0); TOTAL PROTEIN 7.4 g/dL (6.4-8.2)
[2019-12-18] MEDS ORDERED: PREDNISONE50 MG PO ×2 (20:10→20:26)
[2019-12-18] MEDS ORDERED: IBUPROFEN 800800 MG PO ×2 (20:10→20:26)
[2019-12-18] MEDS ORDERED: IPRAT-ALBUT 0.5-3 ML INH ×2 (20:10→20:26)
[2019-12-18] MEDS ORDERED: Magic Mouthwash SWISH&SPIT ×2 (20:10→20:26)
[2019-12-18 20:51] VITALS: BP 142/76
--- NOTE | 2019-12-19 11:42 | EKG ---
[place] [address] ELECTROCARDIOGRAM REPORT Name: ESHA ALDRIDGE [id number] Admission: 12/18/19 Attend Phys: Discharge: 12/18/19 Date of : 63 Report #: [id number] THIS REPORT FOR: //name// [facility] ED Test Date: 2019-12-18 Test Time: 18:27:46 Pat Name: ESHA ALDRIDGE Department: Room: Gender: F [place] Soaping Machine Operator: : 1965 Requested By: Mickey Alberto Order Number: [id number] MD: Robbin Wright Measurements Intervals [place] Rate: 108 P: 76 [place]: 157 QRS: 74 QRSD: 84 T: 58 QT: 338 QTc: 453 Interpretive Statements Sinus tachycardia Compared to ECG 09/22/2019 14:08:01 Sinus rhythm no longer present Electronically Signed On 12-19-2019 11:41:22 CORRECTIONAL PROGRAM SPECIALIST by Robbin Wright [email or web address] <ELECTRONICALLY SIGNED> By: Robbin Wright MD, [facility] 12/19/19 1141 1827 182 Robbin Wright MD, FACC /EPI
[2019-12-19] MEDS ORDERED: BENTYL 10 MG CA10 MG PO (18:58)
== END 2019-12-18 20:53 | disposition home or self-care (01) ==
LOC: M.ERS 18:22
PROVIDERS: Family Medicine
DX: J44.1 Chronic obstructive pulmonary disease with (acute) exacerbation (principal); I10 Essential (primary) hypertension; K58.9 Irritable bowel syndrome, unspecified; E11.43 Type 2 diabetes mellitus with diabetic autonomic (poly)neuropathy; K31.84 Gastroparesis; F17.210 Nicotine dependence, cigarettes, uncomplicated; Z79.4 Long term (current) use of insulin; Z88.8 Allergy status to other drugs, medicaments and biological substances; Z98.51 Tubal ligation status

== ENCOUNTER 2019-12-19 16:12 | Emergency (ER) | payer MEDICAID ==
[~2019-12-19] VITALS: Ht 160 cm; Wt 77.1 kg
--- NOTE | ~2019-12-19 | EKG ---
[place] [address] ELECTROCARDIOGRAM REPORT Name: ESHA ALDRIDGE Room: [facility]#: [id number] Admission: 12/19/19 Attend Phys: Discharge: 12/19/19 Date of : 63 Report #: [id number] THIS REPORT FOR: //name// [facility] ED Test Date: 2019-12-19 Test Time: 16:34:20 Pat Name: ESHA ALDRIDGE Department: Room: Gender: F Road Sign Installer: : 1965 Requested By: Azalia Mandujano Order Number: [id number] MD: Measurements Intervals [place] Rate: 103 P: 74 [place]: 162 QRS: 67 QRSD: 81 T: 53 QT: 335 QTc: 439 Interpretive Statements Sinus tachycardia Compared to ECG 12/18/2019 18:27:46 No significant changes [email or web address] By: 1634 1634 Estuardoany MD Diego /EPI
[~2019-12-19 16:12] MED LIST changes: +IBUPROFEN 800800 MG PO; +IPRAT-ALBUT 0.5-3 ML INH; +Magic Mouthwash SWISH&SPIT; +PREDNISONE50 MG PO
[2019-12-19 16:36] LABS: URINE BILIRUBIN NEGATIVE (Negative); URINE BLOOD NEGATIVE (Negative); URINE CLARITY CLEAR; URINE COLOR YELLOW; URINE GLUCOSE-RANDOM 2+ (Negative); URINE KETONES NEGATIVE (Negative); URINE LEUKOCYTES NEGATIVE (Negative); URINE NITRITE NEGATIVE (Negative); URINE PROTEIN NEGATIVE (Negative); URINE SPECIFIC GRAVITY 1.025 (1.005-1.030); URINE UROBILINOGEN 0.2 E.U./dl (0.2-1.0)
[2019-12-19 16:52] LABS: ABSOLUTE BASOPHILS 0.2 thou/uL (0.0-0.2); ABSOLUTE EOSINOPHILS 0.1 thou/uL (0.0-0.7); ABSOLUTE LYMPHOCYTES 2.3 thou/uL (0.8-5.3); ABSOLUTE MONOCYTES 0.5 thou/uL (0.0-1.2); ABSOLUTE NEUTROPHILS 7.4 thou/uL (1.6-8.1); BASOPHILS 1.5 %; EOSINOPHILS 0.9 %; HEMATOCRIT 38.6 % (37.0-47.0); LYMPHOCYTES 21.6 %; MCH 28.4 pg (26.0-34.0); MCHC 33.7 g/dL (28.0-37.0); MCV 84.3 fL (80.0-100.0); MONOCYTES 4.9 %; MPV 8.5 fl. (7.2-11.1); NUCLEATED RBCS 0 /100WBC; PLATELET COUNT* 176 thou/uL (150-400); POLYS 71.1 %; RBC 4.58 mil/uL (4.20-5.00); RDW-CV 16.1 % (10.5-14.5); WBC 10.5 thou/uL (4.0-11.0)
[2019-12-19 16:58] LABS: CALCIUM 8.7 mg/dL (8.5-10.1); CREATININE 0.8 mg/dL (0.6-1.3); POTASSIUM 3.6 mmol/L (3.5-5.1)
[2019-12-19 17:02] LABS: ALBUMIN 3.8 g/dL (3.4-5.0); TOTAL BILIRUBIN 0.3 mg/dL (<0.1-1.0); TOTAL PROTEIN 7.2 g/dL (6.4-8.2)
[2019-12-19] MEDS ORDERED: BENTYL 10 MG CA10 MG PO (18:58)
[2019-12-19 19:12] VITALS: BP 134/74
== END 2019-12-19 19:14 | disposition home or self-care (01) ==
LOC: M.ERS 16:12
PROVIDERS: Physician Assistant
DX: R10.84 Generalized abdominal pain (principal); R11.2 Nausea with vomiting, unspecified; R19.7 Diarrhea, unspecified; J44.9 Chronic obstructive pulmonary disease, unspecified; I10 Essential (primary) hypertension; E11.43 Type 2 diabetes mellitus with diabetic autonomic (poly)neuropathy; K31.84 Gastroparesis; F17.210 Nicotine dependence, cigarettes, uncomplicated; Z88.6 Allergy status to analgesic agent; Z88.8 Allergy status to other drugs, medicaments and biological substances; Z79.4 Long term (current) use of insulin

== ENCOUNTER 2020-01-27 06:33 | Emergency (ER) | payer MEDICAID ==
[~2020-01-27] VITALS: Ht 160 cm; Wt 72.6 kg
[~2020-01-27 06:33] MED LIST changes: +BENTYL 10 MG CA10 MG PO
[2020-01-27] MEDS ORDERED: HUMALOG100 UNIT/1 SUBQ (06:43)
[2020-01-27] MEDS ORDERED: NORCO 5-325 TA1 EAC1 PO (08:02)
[2020-01-27 08:23] VITALS: BP 149/76
== END 2020-01-27 08:25 | disposition home or self-care (01) ==
LOC: M.ERS 06:33
DX: M25.562 Pain in left knee (principal); J44.9 Chronic obstructive pulmonary disease, unspecified; I10 Essential (primary) hypertension; E11.9 Type 2 diabetes mellitus without complications; K58.9 Irritable bowel syndrome, unspecified; F17.210 Nicotine dependence, cigarettes, uncomplicated; Z88.6 Allergy status to analgesic agent; Z88.8 Allergy status to other drugs, medicaments and biological substances; Z98.51 Tubal ligation status

== ENCOUNTER 2020-04-05 18:27 | Emergency (ER) | payer MEDICAID ==
[~2020-04-05] VITALS: Ht 160 cm; Wt 72.6 kg
[~2020-04-05 18:27] MED LIST changes: +HUMALOG100 UNIT/1 SUBQ; +NORCO 5-325 TA1 EAC1 PO
[2020-04-05] MEDS ORDERED: LANTUS SUBQ (18:38)
[2020-04-05] MEDS ORDERED: AMOXICILLIN 50500 MG PO (19:17)
[2020-04-05] MEDS ORDERED: TYLENOL WITH CO1 TA1 PO (19:17)
[2020-04-05 19:30] VITALS: BP 186/83
== END 2020-04-05 19:31 | disposition home or self-care (01) ==
LOC: M.ERS 18:27
DX: K02.9 Dental caries, unspecified (principal); I10 Essential (primary) hypertension; E11.9 Type 2 diabetes mellitus without complications; K58.9 Irritable bowel syndrome, unspecified; J44.9 Chronic obstructive pulmonary disease, unspecified; F31.9 Bipolar disorder, unspecified; F17.210 Nicotine dependence, cigarettes, uncomplicated; Z98.51 Tubal ligation status; Z88.6 Allergy status to analgesic agent; Z88.8 Allergy status to other drugs, medicaments and biological substances

== ENCOUNTER 2020-04-29 21:04 | Inpatient (IN) | payer MEDICAID ==
[~2020-04-29] VITALS: Ht 160 cm; Wt 76.7 kg
--- NOTE | ~2020-04-29 | H ---
[address] [address] HISTORY AND PHYSICAL Name: ESHA ALDRIDGE Room: [address] IN .R.#: [id number] Admission: 04/30/20 Attend Phys: Jayy Correia Discharge: 04/30/20 Date of : 63 Report #: [id number] THIS REPORT FOR: //name// cc: BRAYDEN - No family physician/PCP FAM - No family physician/PCP ~ THIS REPORT FOR: //name// Patient was here less than 24 hour please refer to the final summation note. Patient left Against Medical Advice. By: [facility]4Medical Records Staff [facility] /RILEY
[~2020-04-29 21:04] MED LIST changes: +AMOXICILLIN 50500 MG PO; +LANTUS SUBQ; +TYLENOL WITH CO1 TA1 PO
[2020-04-29 21:09] VITALS: BP 136/74
[2020-04-29] MEDS ORDERED: MACROBID 100 M100 MG PO (21:26)
[2020-04-29 21:51] LABS: ABSOLUTE EOSINOPHILS 0.2 thou/uL (0.0-0.7); ABSOLUTE MONOCYTES 0.4 thou/uL (0.0-1.2); ABSOLUTE NEUTROPHILS 4.8 thou/uL (1.6-8.1); BASOPHILS 0.5 %; EOSINOPHILS 2.5 %; HEMATOCRIT 42.8 % (37.0-47.0); HEMOGLOBIN 14.4 gm/dL (12.0-15.0); LYMPHOCYTES 27.4 %; MCH 29.1 pg (26.0-34.0); MCHC 33.7 g/dL (28.0-37.0); MCV 86.1 fL (80.0-100.0); MONOCYTES 4.9 %; MPV 8.9 fl. (7.2-11.1); NUCLEATED RBCS 0 /100WBC; PLATELET COUNT* 174 thou/uL (150-400); POLYS 64.7 %; RBC 4.97 mil/uL (4.20-5.00); RDW-CV 15.6 % (10.5-14.5); WBC 7.4 thou/uL (4.0-11.0)
[2020-04-29 21:57] LABS: CALCIUM 8.6 mg/dL (8.5-10.1); CREATININE 0.8 mg/dL (0.6-1.3); POTASSIUM 3.8 mmol/L (3.5-5.1)
[2020-04-29 22:07] LABS: ALBUMIN 3.9 g/dL (3.4-5.0); MAGNESIUM 1.4 mg/dL (1.8-2.4); TOTAL BILIRUBIN 0.5 mg/dL (<0.1-1.0); TOTAL PROTEIN 7.7 g/dL (6.4-8.2)
[2020-04-29 22:34] LABS: PROTIME 9.8 Seconds (9.20-11.50)
[2020-04-29 23:05] LABS: URINE BILIRUBIN NEGATIVE (Negative); URINE BLOOD NEGATIVE (Negative); URINE CLARITY CLEAR; URINE COLOR YELLOW; URINE GLUCOSE-RANDOM NEGATIVE (Negative); URINE KETONES TRACE (Negative); URINE LEUKOCYTES-REFLEX NEGATIVE (Negative); URINE NITRITE-REFLEX NEGATIVE (Negative); URINE PROTEIN NEGATIVE (Negative); URINE SPECIFIC GRAVITY 1.025 (1.005-1.030); URINE UROBILINOGEN 0.2 E.U./dl (0.2-1.0)
--- NOTE | 2020-04-30 00:37 | NUR ---
PATIENT NOW AWAKE, PATIENT SEEN WALKING OUT OF ED WITH A CIGARETTE AND MARKETING OPERATIONS ASSISTANT PATIENT STOPPED AND NOTIFIED THAT SHE COULD NOT SMOKE AND NEEDED TO RETURN TO ED OR SIGN OUT PATIENT BECANE ANGRY AND VERBALLY CUSSING AT STAFF. SECURITY AERRIVED PATIENT RERTURNED TO ED AND DR LITTLE ARRIVED AT BEDSIDE TO TALK WITH PATIENT.
--- NOTE | 2020-04-30 00:53 | NUR ---
PATIENT CONTINUES TO BE ANGRY ABOUT WHY SHE CANNOT SMOKE. PATIENT NOW STATES SHE WILL STAY UNTILL MORNING. PATIENT REFUSING OFFER OF NICOTINE PATCH DR LITTLE HAS OFFERED PATIENT ADDITIONAL MEDICATION PATIENT STATES SHE WILL DECIDE IF SHE WILL TAKE IT.
[2020-04-30 02:38] VITALS: BP 104/54
--- NOTE | 2020-04-30 17:05 | EKG ---
[place] [address] ELECTROCARDIOGRAM REPORT Name: ESHA ALDRIDGE Room: [address] IN [facility]#: [id number] Admission: 04/30/20 Attend Phys: Lenard Lyon Discharge: 04/30/20 Date of : 63 Date of Service: 04/29/202108 Report #: [id number] THIS REPORT FOR: //name// [facility] ED Test Date: 2020-04-29 Test Time: 21:09:44 Pat Name: ESHA ALDRIDGE Department: Room: [facility] Gender: F Activities Leader: ROSA M : 1965 Requested By: Bre Raza Order Number: [id number] MD: Kaveh Collier Measurements Intervals [place] Rate: 88 P: 81 [place]: 167 QRS: 68 QRSD: 86 T: 58 QT: 360 QTc: 436 Interpretive Statements Sinus rhythm RSR' in V1 or V2, right VCD Baseline wander in lead(s) V6 Compared to ECG 12/19/2019 16:34:20 RSR' in V1 or V2 now present Sinus tachycardia no longer present Electronically Signed On 04-30-2020 17:03:52 CDT by Kaveh Collier [email or web address] <ELECTRONICALLY SIGNED> By: Kaveh Collier MD, [facility] 04/30/20 1703 08 08 Kaveh Collier MD, [facility] /EPI
== END 2020-04-30 02:57 | disposition left against medical advice (07) | DRG 192 ==
LOC: M.ERS 21:04 → M.TBA-ER 04-30 00:57 → M.2W 04-30 02:14
PROVIDERS: Emergency Medicine; ADMIT Internal Medicine; ATTEND Internal Medicine
DX: J44.9 Chronic obstructive pulmonary disease, unspecified (principal); I10 Essential (primary) hypertension; E11.9 Type 2 diabetes mellitus without complications; F31.9 Bipolar disorder, unspecified; K57.90 Diverticulosis of intestine, part unspecified, without perforation or abscess without bleeding; F41.9 Anxiety disorder, unspecified; Z88.8 Allergy status to other drugs, medicaments and biological substances; Z79.899 Other long term (current) drug therapy; Z53.29 Procedure and treatment not carried out because of patient's decision for other reasons

== ENCOUNTER 2020-05-02 17:02 | Emergency (ER) | payer MEDICAID ==
[~2020-05-02] VITALS: Ht 160 cm; Wt 72.6 kg
[~2020-05-02 17:02] MED LIST changes: +MACROBID 100 M100 MG PO
[2020-05-02] MEDS ORDERED: NORCO 5-325 TA1 EAC1 PO (17:48)
[2020-05-02] MEDS ORDERED: AMOXICILLIN 50500 MG PO (17:48)
[2020-05-02 18:01] VITALS: BP 160/72
== END 2020-05-02 18:02 | disposition home or self-care (01) ==
LOC: M.ERS 17:02
DX: K02.9 Dental caries, unspecified (principal); I10 Essential (primary) hypertension; E11.9 Type 2 diabetes mellitus without complications; J44.9 Chronic obstructive pulmonary disease, unspecified; K58.9 Irritable bowel syndrome, unspecified; F31.9 Bipolar disorder, unspecified; F41.9 Anxiety disorder, unspecified; F17.210 Nicotine dependence, cigarettes, uncomplicated; Z98.51 Tubal ligation status; Z88.6 Allergy status to analgesic agent; Z88.8 Allergy status to other drugs, medicaments and biological substances

== ENCOUNTER 2020-05-10 10:18 | Emergency (ER) | payer MEDICAID ==
[~2020-05-10] VITALS: Ht 160 cm; Wt 72.6 kg
[2020-05-10] MEDS ORDERED: MOBIC7.5 MG PO (10:50)
[2020-05-10 11:04] VITALS: BP 183/86
== END 2020-05-10 11:04 | disposition home or self-care (01) ==
LOC: M.ERS 10:18
DX: K08.89 Other specified disorders of teeth and supporting structures (principal); I10 Essential (primary) hypertension; E11.9 Type 2 diabetes mellitus without complications; J44.9 Chronic obstructive pulmonary disease, unspecified; K58.9 Irritable bowel syndrome, unspecified; F41.9 Anxiety disorder, unspecified; F17.210 Nicotine dependence, cigarettes, uncomplicated; Z76.5 Malingerer [conscious simulation]; Z98.51 Tubal ligation status; Z88.6 Allergy status to analgesic agent; Z88.8 Allergy status to other drugs, medicaments and biological substances

== ENCOUNTER 2020-08-05 09:22 | Emergency (ER) | payer MEDICAID ==
[~2020-08-05] VITALS: Ht 160 cm; Wt 70.3 kg
[~2020-08-05 09:22] MED LIST changes: +MOBIC7.5 MG PO
[2020-08-05] MEDS ORDERED: NORCO 5-325 TA1 EAC2 PO (10:16)
[2020-08-05 11:35] VITALS: BP 120/80
== END 2020-08-05 11:35 | disposition home or self-care (01) ==
LOC: M.ERS 09:22
DX: S42.202A Unspecified fracture of upper end of left humerus, initial encounter for closed fracture (principal); M25.522 Pain in left elbow; R05 Cough; R06.02 Shortness of breath; R06.2 Wheezing; E11.40 Type 2 diabetes mellitus with diabetic neuropathy, unspecified; J44.9 Chronic obstructive pulmonary disease, unspecified; I10 Essential (primary) hypertension; F31.9 Bipolar disorder, unspecified; F41.9 Anxiety disorder, unspecified; F17.210 Nicotine dependence, cigarettes, uncomplicated; Z98.51 Tubal ligation status; Z79.899 Other long term (current) drug therapy; Z79.2 Long term (current) use of antibiotics; Z79.82 Long term (current) use of aspirin; Z79.4 Long term (current) use of insulin; Z88.8 Allergy status to other drugs, medicaments and biological substances; Z88.6 Allergy status to analgesic agent; W18.09XA Striking against other object with subsequent fall, initial encounter; Y93.89 Activity, other specified; Y92.098 Other place in other non-institutional residence as the place of occurrence of the external cause; Y99.8 Other external cause status